=== PATIENT | male | born 2000 | race American Indian/Alaskan Native ===

== ENCOUNTER 2019-08-02 22:05 | Emergency (ER) | payer SELFPAY ==
[2019-08-02 23:35] VITALS: BP 124/53
== END 2019-08-03 02:20 | disposition left against medical advice (07) ==
LOC: ED 22:05
DX: K08.89 Other specified disorders of teeth and supporting structures (principal); Z53.21 Procedure and treatment not carried out due to patient leaving prior to being seen by health care provider

== ENCOUNTER 2020-04-22 12:32 | Emergency (ER) | payer SELFPAY ==
[2020-04-22 12:40] VITALS: BP 140/64
--- NOTE | 2020-04-22 13:47 | Emergency Department Report ---
Chief Complaint: Sore Throat Stated Complaint: THROAT IRRITATION Time Seen by Provider: 04/22/20 13:31 - HPI History of Present Illness: 20-year-old -[place] male presents to the emergency room complaining of throat irritation. Patient states he is taken lohm-gvh-vnzwkiu cold medicine and it and it had helped his nasal congestion and runny nose. Patient states had a very mild irritation of his throat and wants to be sure he has an dying. Patient denies any fever chills no nausea no vomiting no abdominal pain or chest pain. - Exam Vital Signs: Vital Signs 04/22/20 12:38 Temperature 98.8 F Pulse Rate 63 Respiratory 18 Rate Blood Pressure 140/64 O2 Sat by Pulse 98 Oximetry MSE screening note: Focused history and physical exam performed. Due to findings the following was ordered: 20-year-old -[place] male presents to the emergency room complaining of throat irritation. Patient states he is taken jvki-yov-wsirrsf cold medicine and it and it had helped his nasal congestion and runny nose. Patient states had a very mild irritation of his throat and wants to be sure he has an dying. Patient denies any fever chills no nausea no vomiting no abdominal pain or chest pain. Recommend rovo-xjm-xluouyt Zyrtec's or Claritin ibuprofen or Tylenol increase his fluid intake ED Disposition for MSE Disposition: MED SCREENING EXAM-LEFT Is pt being admited?: No Does the pt Need Aspirin: No Condition: Stable Additional Instructions: Try taking beng-huy-gswvdys Zyrtec's or Claritin. Increase your fluid intake. You can take ibuprofen or Tylenol for pain management. Referrals: [facility] [Provider Group] - 3-5 Days
== END 2020-04-22 14:27 | disposition left against medical advice (07) ==
LOC: ED 12:32
DX: R07.0 Pain in throat (principal); Z53.21 Procedure and treatment not carried out due to patient leaving prior to being seen by health care provider